=== PATIENT | male | born 1980 | race Caucasian/White ===

== ENCOUNTER 2018-05-05 19:11 | Emergency (ER) | payer BC ==
[2018-05-05] MEDS ORDERED: MORPHINE SULFATE 10 MG/ML INJ IV ONE (19:58)
[2018-05-05] MEDS ORDERED: ONDANSETRON HCL INJ/PF 4 MG/2 ML SDV IV ONE (19:58)
--- NOTE | 2018-05-05 19:58 | ER Document Report ---
ED Medical Screen (RME) - General Chief Complaint: Abdominal Pain/hernia Stated Complaint: NAUSEA,ABDOMINAL PAIN Time Seen by Provider: 05/05/18 19:52 Mode of Arrival: Ambulatory Information source: Patient Notes: 38-year-old male with no reported past medical history presents with complaint of abdominal pain that started just prior to arrival. Patient has a known abdominal hernia which he is scheduled for repair on June [address] Gamble at [facility]. Patient states today the hernia became bigger hard and extremely painful. Patient has had nausea without vomiting. His last bowel movement was 2 days prior to arrival. He states that he feels like he needs to have a bowel movement is unable to do so. I have greeted and performed a rapid initial assessment of this patient. A comprehensive ED assessment and evaluation of the patient, analysis of test results and completion of medical decision making process we will be contacted by additional ED providers. PHYSICAL EXAMINATION: Vital signs reviewed GENERAL: Appears to be uncomfortable LUNGS: No respiratory distress Musculoskeletal: Normal range of motion NEUROLOGICAL: Normal speech, normal gait. PSYCH: Normal mood, normal affect. SKIN: Warm, Dry, normal turgor, no rashes or lesions noted. TRAVEL OUTSIDE OF THE [place] IN LAST 30 DAYS: No - HPI Onset: Just prior to arrival Onset/Duration: Sudden Quality of pain: No pain, Pressure, Throbbing Severity: Moderate Associated Symptoms: Abdominal pain, Nausea. denies: Vomiting Exacerbated by: Movement, Coughing Relieved by: Denies Similar symptoms previously: No Recently seen / treated by doctor: Yes - Related Data Smoking: Non-smoker Frequency of alcohol use: None Drug Abuse: None Allergies/Adverse Reactions: No Known Allergies Allergy (Verified 05/05/18 19:51) Past Medical History - Social History Frequency of alcohol use: None Drug Abuse: None Renal/ Medical History: Denies: Hx Peritoneal Dialysis Physical Exam - Vital signs Vitals: Temp Pulse Resp BP Pulse Ox 98.7 F 109 H 22 H 142/81 H 97 05/05/18 19:21 05/05/18 19:21 05/05/18 19:21 05/05/18 19:21 05/05/18 19:21 Course - Vital Signs Vital signs: Temp Pulse Resp BP Pulse Ox 98.7 F 109 H 22 H 142/81 H 97 05/05/18 19:21 05/05/18 19:21 05/05/18 19:21 05/05/18 19:21 05/05/18 19:21
[2018-05-05 20:40] LABS: APPEARANCE,URINE CLOUDY; BILIRUBIN,URINE NEGATIVE (NEGATIVE); COLOR,URINE YELLOW; GLUCOSE, URINE NEGATIVE (NEGATIVE); KETONES,URINE NEGATIVE (NEGATIVE); LEUKOCYTE ESTERASE,URINE NEGATIVE (NEGATIVE); NITRITE,URINE NEGATIVE (NEGATIVE); PROTEIN,URINE 100 mg/dL (NEGATIVE); URINE SPECIFIC GRAVITY 1.015; UROBILINOGEN,URINE NEGATIVE mg/dL (<2.0)
[2018-05-05 22:35] LABS: ABSOLUTE BASOPHILS # (AUTO) 0.1 10^3/uL (0.0-0.2); ABSOLUTE EOSINOPHILS # (AUTO) 0.6 10^3/uL (0.0-0.6); ABSOLUTE LYMPHOCYTES (AUTO) 2.9 10^3/uL (0.5-4.7); ABSOLUTE MONOCYTES (AUTO) 0.6 10^3/uL (0.1-1.4); BASOPHILS % (AUTO) 1.3 % (0-2); EOSINOPHILS % (AUTO) 7.3 % (0-6); HEMATOCRIT 43.1 % (37.9-51.0); HEMOGLOBIN 15.5 g/dL (13.5-17.0); MEAN CORPUSCULAR HGB CONC 35.8 g/dL (32.0-36.0); MEAN CORPUSCULAR VOLUME 87 fl (80-97); MONOCYTES % (AUTO) 7.7 % (3-13); PLATELET COUNT 331 10^3/uL (150-450); RED BLOOD COUNT 4.99 10^6/uL (4.35-5.55); SEGMENTED NEUTROPHILS % (AUTO) 48.7 % (42-78); TOTAL CELLS COUNTED % (AUTO) 100 %; WHITE BLOOD COUNT 8.3 10^3/uL (4.0-10.5)
[2018-05-05 22:46] LABS: INTERNATIONAL RATION (INR) 0.86; PARTIAL THROMBOPLASTIN TIME 25.1 SEC (23.5-35.8); PROTHROMBIN TIME 12.1 SEC (11.4-15.4)
[2018-05-05 22:50] LABS: ALANINE AMINOTRANSFERASE 67 U/L (21-72); ALBUMIN 4.6 g/dL (3.5-5.0); ALKALINE PHOSPHATASE 73 U/L (38-126); ANION GAP 13 (5-19); ASPARTATE AMINO TRANSFERASE 38 U/L (17-59); BILIRUBIN,DIRECT 0.2 mg/dL (0.0-0.4); BILIRUBIN,TOTAL 0.5 mg/dL (0.2-1.3); BLOOD UREA NITROGEN 14 mg/dL (7-20); CALCIUM 9.9 mg/dL (8.4-10.2); CARBON DIOXIDE 25 mmol/L (22-30); CHLORIDE 101 mmol/L (98-107); GLUCOSE 196 mg/dL (75-110); LIPASE 211.2 U/L (23-300); POTASSIUM 4.4 mmol/L (3.6-5.0); SODIUM 138.8 mmol/L (137-145); TOTAL PROTEIN 7.2 g/dL (6.3-8.2)
--- NOTE | 2018-05-05 23:20 | RADIOLOGY REPORT (SQ) ---
CT ABDOMEN PELVIS WITH IV CONTRAST HISTORY: Abdominal pain. COMPARISON: None. TECHNIQUE: CT scan of the abdomen and pelvis with IV contrast. This exam was performed according to our departmental dose-optimization program, which includes automated exposure control, adjustment of the mA and/or kV according to patient size and/or use of iterative reconstruction technique. FINDINGS: The lung bases are clear. No pleural or pericardial effusions. There is no hiatal hernia. Hepatic steatosis. The gallbladder, spleen, pancreas, adrenal glands, and kidneys are unremarkable. The pelvic organs are also unremarkable. There are scattered colonic diverticula without surrounding inflammatory changes. The appendix is normal. No small bowel obstruction. There is an umbilical hernia containing fat with inflammatory stranding. However, no bowel loops are seen in the hernia sac. No intraperitoneal free fluid or free air is seen. Mild degenerative changes of the lumbar spine. The aorta is normal caliber. IMPRESSION: 1. Small umbilical hernia with inflammatory stranding of the herniated fat. However, no bowel loops are within the hernia sac. 2. No evidence of small bowel obstruction or incarceration.
[2018-05-05] MEDS ORDERED: NORMAL SALINE 1000 ML 1,000 ML IV ONE (23:44)
[2018-05-05] MEDS ORDERED: KETOROLAC TROMETHAMINE INJ/PF 30 MG/1 ML SDV IV ONE (23:45)
--- NOTE | 2018-05-05 23:46 | ER Document Report ---
ED General - General Chief Complaint: Abdominal Pain/hernia Stated Complaint: NAUSEA,ABDOMINAL PAIN Time Seen by Provider: 05/05/18 19:52 Mode of Arrival: Ambulatory Notes: 38-year-old male to emergency department for evaluation of abdominal pain. Patient states that he has a known abdominal/ventral wall hernia. Scheduled for surgery at [facility] on 02 June. States that it began hurting him today. Went to the urgent care. Was sent here for evaluation of the possible incarcerated hernia. Patient denies any fever, chills, sweats. Does not have any major pain at this time. Feels better when he is lying down. TRAVEL OUTSIDE OF THE [place] IN LAST 30 DAYS: No - HPI Onset/Duration: Gradual, Constant Quality of pain: Achy Severity: Moderate Associated symptoms: None - Related Data Allergies/Adverse Reactions: No Known Allergies Allergy (Verified 05/05/18 19:51) Past Medical History - General Information source: Patient - Social History Smoking Status: Never Smoker Frequency of alcohol use: None Drug Abuse: None Lives with: Family Family History: Reviewed & Not Pertinent Patient has suicidal ideation: No Patient has homicidal ideation: No - Medical History Medical History: Negative Renal/ Medical History: Denies: Hx Peritoneal Dialysis Review of Systems - Review of Systems Notes: Constitutional: denies: Chills, Diaphoresis, Fever, Malaise, Weakness EENT: denies: Eye discharge, Blurred vision, Tearing, Double vision, Nose congestion, Nose discharge, Throat swelling, Mouth pain Cardiovascular: denies: Palpitations, Heart racing, Orthopnea, Dyspnea, Chest pain Respiratory: denies: Cough, Hurts to breathe, Wheezing, Shortness of breath Gastrointestinal: +Abdominal pain. Negative for diarrhea, Nausea, Vomiting, Black stools, bright red blood in stool Genitourinary: denies: Burning, Dysuria, Discharge, Frequency, Flank pain, Hematuria Musculoskeletal: denies: Joint pain, Joint swelling, Muscle pain, Muscle stiffness, back pain Hematologic/Lymphatic: denies: Anemia, Easy bleeding, Easy bruising, Blood clots Neurological/Psychological: denies: Confusion, Dementia, Depression, Loss of consciousness Skin: No lesions, no masses, no skin breakdown, no abscesses Physical Exam - Vital signs Vitals: Temp Pulse Resp BP Pulse Ox 98.7 F 109 H 22 H 142/81 H 97 05/05/18 19:21 02/25/19 19:21 05/05/18 19:21 05/05/18 19:21 05/05/18 19:21 Interpretation: Normal - General General appearance: Appears well, Alert - HEENT Head: Normocephalic, Atraumatic Eyes: Normal Pupils: PERRL - Respiratory Respiratory status: No respiratory distress Chest status: Nontender Breath sounds: Normal Chest palpation: Normal - Cardiovascular Rhythm: Regular Heart sounds: Normal auscultation Murmur: No - Abdominal Inspection: Normal Distension: No distension Bowel sounds: Normal Tenderness: Tender - There is a moderate to large sized ventral wall hernia which is nonreducible. Organomegaly: No organomegaly - Back Back: Normal, Nontender - Extremities General upper extremity: Normal inspection, Nontender, Normal color, Normal ROM, Normal temperature General lower extremity: Normal inspection, Nontender, Normal color, Normal ROM, Normal temperature, Normal weight bearing. No: Shilpi's sign - Neurological Neuro grossly intact: Yes Cognition: Normal Orientation: AAOx4 [place] Coma Scale Eye Opening: Spontaneous [place] Coma Scale Verbal: Oriented [place] Coma Scale Motor: Obeys Commands [place] Coma Scale Total: 15 Speech: Normal Motor strength normal: LUE, RUE, LLE, RLE Sensory: Normal - Psychological Associated symptoms: Normal affect, Normal mood - Skin Skin Temperature: Warm Skin Moisture: Dry Skin Color: Normal Course - Re-evaluation Re-evalutation: 05/05/18 23:52 Laboratory 05/05/18 05/05/18 05/05/18 20:06 22:20 22:20 WBC 8.3 RBC 4.99 Hgb 15.5 Hct 43.1 MCV 87 MCH 31.0 MCHC 35.8 RDW 13.0 Plt Count 331 Seg Neutrophils % 48.7 Lymphocytes % 35.0 Monocytes % 7.7 Eosinophils % 7.3 H Basophils % 1.3 Absolute Neutrophils 4.0 Absolute Lymphocytes 2.9 Absolute Monocytes 0.6 Absolute Eosinophils 0.6 Absolute Basophils 0.1 PT INR APTT Sodium 138.8 Potassium 4.4 Chloride 101 Carbon Dioxide 25 Anion Gap 13 BUN 14 Creatinine 0.83 Est GFR ( Amer) > 60 Est GFR (Non-Af Amer) > 60 Glucose 196 H Lactic Acid Calcium 9.9 Total Bilirubin 0.5 Direct Bilirubin 0.2 Neonat Total Bilirubin Not Reportable Neonat Direct Bilirubin Not Reportable Neonat Indirect Bili Not Reportable AST 38 ALT 67 Alkaline Phosphatase 73 Total Protein 7.2 Albumin 4.6 Lipase 211.2 Urine Color YELLOW Urine Appearance CLOUDY Urine pH 6.0 Ur Specific Palmer 1.015 Urine Protein 100 H Urine Glucose (UA) NEGATIVE Urine Ketones NEGATIVE Urine Blood NEGATIVE Urine Nitrite NEGATIVE Urine Bilirubin NEGATIVE Urine Urobilinogen NEGATIVE Ur Leukocyte Esterase NEGATIVE Urine WBC (Auto) 0 Urine RBC (Auto) 1 Squamous Epi Cells Auto 2 Urine Mucus (Auto) OCC Urine Ascorbic Acid NEGATIVE 05/05/18 05/05/18 22:20 22:20 WBC RBC Hgb Hct MCV MCH MCHC RDW Plt Count Seg Neutrophils % Lymphocytes % Monocytes % Eosinophils % Basophils % Absolute Neutrophils Absolute Lymphocytes Absolute Monocytes Absolute Eosinophils Absolute Basophils PT 12.1 INR 0.86 APTT 25.1 Sodium Potassium Chloride Carbon Dioxide Anion Gap BUN Creatinine Est GFR ( Amer) Est GFR (Non-Af Amer) Glucose Lactic Acid 3.5 H Calcium Total Bilirubin Direct Bilirubin Neonat Total Bilirubin Neonat Direct Bilirubin Neonat Indirect Bili AST ALT Alkaline Phosphatase Total Protein Albumin Lipase Urine Color Urine Appearance Urine pH Ur Specific Palmer Urine Protein Urine Glucose (UA) Urine Ketones Urine Blood Urine Nitrite Urine Bilirubin Urine Urobilinogen Ur Leukocyte Esterase Urine WBC (Auto) Urine RBC (Auto) Squamous Epi Cells Auto Urine Mucus (Auto) Urine Ascorbic Acid Abdomen/Pelvis CT 05/05/18 19:54 IMPRESSION: 1. Small umbilical hernia with inflammatory stranding of the herniated fat. However, no bowel loops are within the hernia sac. 2. No evidence of small bowel obstruction or incarceration. Discussed case with Dr. Doyle with general surgery. This is not a surgical emergency at this time. There is no evidence of bowel obstruction. Patient does have incarcerated fat which is best treated by anti-inflammatories. At this time patient is comfortable with this plan of following up with his surgeon in [place]. Patient remains comfortable. Will give initial dose of Toradol and discharge. - Vital Signs Vital signs: Temp Pulse Resp BP Pulse Ox 98.4 F 99 16 153/96 H 99 05/05/18 23:27 05/05/18 23:27 05/05/18 23:27 05/05/18 23:27 05/05/18 23:27 - Laboratory Result Diagrams: 05/05/18 22:20 05/05/18 22:20 Laboratory results interpreted by me: 05/05/18 05/05/18 05/05/18 20:06 22:20 22:20 Eosinophils % 7.3 H Glucose 196 H Lactic Acid Urine Protein 100 H 05/05/18 22:20 Eosinophils % Glucose Lactic Acid 3.5 H Urine Protein Discharge - Discharge Clinical Impression: Fatty hernia of linea alba Condition: Good Disposition: HOME, SELF-CARE Instructions: Umbilical Hernia ([facility]) Additional Instructions: There is no evidence of bowel obstruction at this time. You will need to follow-up with your general surgeon. Please begin taking anti-inflammatories as this will help with the pain. In the event that you develop high fevers, vomiting, uncontrollable pain or other concerns please see a medical provider as soon as possible. Prescriptions: Ketorolac Tromethamine [Toradol 10 mg Tablet] 10 mg PO Q8HP PRN 5 Days #20 tablet PRN Reason:
[2018-05-06] MEDS ORDERED: HYDROCODONE/ACETAMINOPHEN 5-325 MG (6 TAB/ER DISP) PO PRN (01:04)
[2018-05-06] MEDS ORDERED: ACETAMINOPHEN 325 MG TABLET PO ONE (01:04)
[2018-05-06 01:41] VITALS: BP 150/75
== END 2018-05-06 01:30 | disposition home or self-care (01) ==
LOC: ER 19:11
DX: K43.9 Ventral hernia without obstruction or gangrene (principal); R10.9 Unspecified abdominal pain
CPT/HCPCS: 99284; 36415; 83690; 85025; 85610; 85730; 80053; 81001; 83605; 74177; J1885; J7030